=== PATIENT | male | born 1940 | race Caucasian/White ===

== ENCOUNTER → 2017-04-26 | Outpatient (CLI) | payer OTHER, MEDICARE ==
[~2017-04-26] MED LIST: Aspirin PO; BETAMETHASONE; CETIRIZINE PO; CICLOPIROX; CLOTCRE5; COEN100C3; Combigan OPB; Fish Oil; GLUC250C; HCTZ PO; LATA0.5S OP; Nasal Spray; [UNRECOGNIZED DRUG - OTHER]; [UNRECOGNIZED DRUG - OTHER]; [UNRECOGNIZED DRUG - OTHER]; [UNRECOGNIZED DRUG - OTHER] PO; [UNRECOGNIZED DRUG - OTHER] PO; [UNRECOGNIZED DRUG - OTHER] PO
[2017-04-26 12:33] LABS: BASO % 0.1 %; BASO ABS # 0.01 K/uL (0-0.2); COMPLETE YES; HEMATOCRIT 41.3 % (42-52); IG% 0.1 %; LYMPH % 12.7 %; MEAN CELL VOLUME 91.2 fL (80-100); MEAN CORPUSCULAR HEMOGLOBIN 31.1 pg (25-34); MEAN CORPUSCULAR HGB CONC 34.1 g/dl (32-36); MEAN PLATELET VOLUME 11.5 fL (7.4-10.4); MONO % 5.2 %; NEUT % 79.9 %; PLATELET COUNT 167 K/uL (130-400); RED BLOOD COUNT 4.53 M/uL (4.7-6.1)
[2017-04-26 13:20] LABS: ALT/SGPT 24 U/L (12-78); AST/SGOT 11 U/L (15-37); BLOOD UREA NITROGEN 13 mg/dl (7-18); BUN/CREATININE RATIO 13.2 (10-20); CALCIUM 8.4 mg/dl (8.5-10.1); CARBON DIOXIDE 24 mmol/L (21-32); CHLORIDE 105 mmol/L (98-107); CREATININE 1.02 mg/dl (0.60-1.40); GLUCOSE 94 mg/dl (70-99); POTASSIUM 3.8 mmol/L (3.5-5.1); SODIUM 140 mmol/L (136-145)
[2017-04-26 13:26] LABS: ALB/GLOB RATIO 1.1 (0.9-2); ALKALINE PHOSPHATASE 63 U/L (45-117); CHOLESTEROL 169 mg/dl (0-200); CHOLESTEROL/HDL RATIO 2.4; HDL CHOLESTEROL 70 mg/dl; LDL CHOLESTEROL CALCULATED 78 mg/dl; TRIGLYCERIDES 106 mg/dl (0-150); VERY LOW DENSITY LIPOPROT CALC 21 mg/dl
== END | disposition home or self-care (01) ==
LOC: C.LABBFT 08:59
PROVIDERS: ATTEND Urology
DX: N40.1 Benign prostatic hyperplasia with lower urinary tract symptoms (principal); I10 Essential (primary) hypertension; E78.00 Pure hypercholesterolemia, unspecified

== ENCOUNTER → 2017-09-15 | Day surgery (SDC) | payer OTHER, MEDICARE ==
[2017-08-30 12:23] VITALS: Ht 176.5 cm; Wt 77.3 kg
[~2017-09-15] VITALS: Ht 176.5 cm; Wt 77.3 kg
[~2017-09-15] MED LIST changes: +ASPCH81X PO; -Aspirin PO; +BENA1TAB53 PO; -BETAMETHASONE; +BRIM0.2S OPB; +CETI10TA10 PO; -CETIRIZINE PO; +CHOL200010 PO; +CICL0.773 TOP; -CICLOPIROX; -CLOTCRE5; -COEN100C3; +COEN100C7 PO; -Combigan OPB; -Fish Oil; -GLUC250C; +GLUCTAB7 PO; -HCTZ PO; +HYDR25TA4 PO; -LATA0.5S OP; +LATA0.5S OPB; +LECITHIN PO; +LIDOCAINE HCL 2% 2 ML VIAL (20MG/ML) ONE; +MELO7.5T6 PO; +MIDAZOLAM HCL 1 MG/ML 2ML VIAL ONE; +MULTTAB58 PO; -Nasal Spray; +OMEG10007 PO; +ONDANSETRON INJ 2 MG/ML 2 ML VIAL ONE; +OXYM0.0592 NAE; +PROPOFOL IV EMULSION 10 MG/ML 20 ML VIAL IV ONE; +SODIUM CHLORIDE 0.9% 500ML 500 ML IV ONE; +VITAMIN B12 PO; +[UNRECOGNIZED DRUG - CODE] EXT; -[UNRECOGNIZED DRUG - OTHER]; -[UNRECOGNIZED DRUG - OTHER]; -[UNRECOGNIZED DRUG - OTHER]; -[UNRECOGNIZED DRUG - OTHER] PO; -[UNRECOGNIZED DRUG - OTHER] PO; -[UNRECOGNIZED DRUG - OTHER] PO
--- NOTE | 2017-09-15 11:02 | Endo History and Physical ---
History & Physical Date of Service: Sep 15, 2017. Chief Complaint: History of polyps Referring Physician: Dr. Uriel Marquez History of Present Illness 77 yo CM who presents for colonoscopy secondary to history of colon polyps. Past Medical History Hypertension Past Surgical History Hx Cardiac Surgery: No Hx Internal Defibrillator: No Hx Pacemaker: No Hx Abdominal Surgery: No Hx of Implantable Prosthesis: No Hx Post-Op Nausea and Vomiting: No Hx Cancer Surgery: Yes (MOHS ON NOSE) Hx Thoracic Surgery: No Hx Orthopedic: Yes (RT KNEE ARTHROSCOPY, LEFT SHOULDER SURGERY) Hx Urinary Tract Surgery: Yes (TURP (GREENLIGHT), VASECTOMY) Family History None Social History Smoking Status: Former Smoker Hx Substance Use: No Hx Alcohol Use: Yes (OCCASIONALLY) Allergies Coded Allergies: Ciprofloxacin (Verified Allergy, Unknown, TEAR IN RT CALF MUSCLE, 08/30/17) Clindamycin (Verified Allergy, Unknown, C-Diff, 08/30/17) Current Medications Reported Home Medications Medications Dose Route/Sig Max Daily Dose Days Date Category Nasal [place] (Oxymetazoline Hcl) 0.05 % Spr 1 [place] FLACO DAILY PRN 08/30/17 Reported Zyrtec (Cetirizine Hcl) 10 Mg Tab 10 Mg PO DAILY PRN 08/30/17 Reported Multivitamin (Multiple Vitamin) 1 Tab Tab 1 Tab PO QAM 08/30/17 Reported [Vitamin B12] 3,000 Mcg PO QAM 08/30/17 Reported Vitamin D (Cholecalciferol) 2,000 Unit Cap 1 Cap PO QAM 08/30/17 Reported [place]-3 (Fish Oil) 1 Ea Cap 1 Cap PO QAM 08/30/17 Reported Coq10 (Coenzyme Q10 (Ubidecarenone)) 100 Mg Cap 1 Cap PO QAM 08/30/17 Reported [Lecithin] 1 Tab PO QAM 08/30/17 Reported Glucosamine Chondroitin (Ppynjsxwbjc-Xxhmaffwqig-Gxb C-) 1 Tab Tab 1 Tab PO QAM 08/30/17 Reported Aspirin Chewable (Aspirin) 81 Mg Chew 81 Mg PO QPM 08/30/17 Reported Mobic (Meloxicam) 7.5 Mg Tab 7.5 Mg PO QAM 08/30/17 Reported Betamethasone Valerate (Betamethasone Marnie) 135 Appln/45 Gm Cr 1 Dose EXT DIRECTED 08/30/17 Reported Ciclopirox (Ciclopirox Olamine) 0.77 % Lidia 1 Appln TOP BID 08/30/17 Reported Xalatan 0.005% Oph Valerie (Latanoprost) 0.005 % Valerie 1 Drops OPB HS 08/30/17 Reported Lotensin (Benazepril HCl) 40 Mg Tab 40 Mg PO QPM 08/30/17 Reported Combigan (Brimonidine Tartrate-Timolol M) 1 Valerie Valerie 1 Drop OPB BID 08/30/17 Reported Hctz (Hydrochlorothiazide) 25 Mg Tab 0.5 Tab PO QAM 08/30/17 Reported Vital Signs Weight (Kilograms): 77.27 Height (Feet): 5 Height (Inches): 9.5 Date Time Temp Pulse Resp B/P (MAP) Pulse Ox O2 Delivery O2 Flow Rate FiO2 09/15/17 10:30 36.9 18 131/81 (98) 98 Room Air Physical Exam General Appearance: WD/WN, no apparent distress Respiratory/Chest: Auscultation: breath sounds normal Cardiovascular: Heart Auscultation: RRR Abdomen: Bowel Sounds: normal Inspection & Palpation: soft, non-distended, no tenderness, guarding & rebound Assessment and Plan Assessment: 77 yo CM who presents for colonoscopy secondary to history of colon polyps. Plan: Proceed with colonoscopy.
--- NOTE | 2017-09-15 11:55 | Discharge Instructions ---
Endoscopy Patient Instructions Date / Procedure(s) Performed Sep 15, 2017. Colonoscopy Allergy Information Coded Allergies: Ciprofloxacin (Verified Allergy, Unknown, TEAR IN RT CALF MUSCLE, 08/30/17) Clindamycin (Verified Allergy, Unknown, C-Diff, 08/30/17) Discharge Date / Findings Sep 15, 2017. Internal hemorrhoids Medication Instructions Stopped Medication(s): Aspirin OK to resume all medications today as prescribed Reported Home Medications Medications Dose Route/Sig Max Daily Dose Days Date Category Nasal [place] (Oxymetazoline Hcl) 0.05 % Spr 1 [place] FLACO DAILY PRN 08/30/17 Reported Zyrtec (Cetirizine Hcl) 10 Mg Tab 10 Mg PO DAILY PRN 08/30/17 Reported Multivitamin (Multiple Vitamin) 1 Tab Tab 1 Tab PO QAM 08/30/17 Reported [Vitamin B12] 3,000 Mcg PO QAM 08/30/17 Reported Vitamin D (Cholecalciferol) 2,000 Unit Cap 1 Cap PO QAM 08/30/17 Reported [place]-3 (Fish Oil) 1 Ea Cap 1 Cap PO QAM 08/30/17 Reported Coq10 (Coenzyme Q10 (Ubidecarenone)) 100 Mg Cap 1 Cap PO QAM 08/30/17 Reported [Lecithin] 1 Tab PO QAM 08/30/17 Reported Glucosamine Chondroitin (Dsuzhehizbm-Mtpwerposks-Kod C-) 1 Tab Tab 1 Tab PO QAM 08/30/17 Reported Aspirin Chewable (Aspirin) 81 Mg Chew 81 Mg PO QPM 08/30/17 Reported Mobic (Meloxicam) 7.5 Mg Tab 7.5 Mg PO QAM 08/30/17 Reported Betamethasone Valerate (Betamethasone Marnie) 135 Appln/45 Gm Cr 1 Dose EXT DIRECTED 08/30/17 Reported Ciclopirox (Ciclopirox Olamine) 0.77 % Lidia 1 Appln TOP BID 08/30/17 Reported Xalatan 0.005% Oph Valerie (Latanoprost) 0.005 % Valerie 1 Drops OPB HS 08/30/17 Reported Lotensin (Benazepril HCl) 40 Mg Tab 40 Mg PO QPM 08/30/17 Reported Combigan (Brimonidine Tartrate-Timolol M) 1 Valerie Valerie 1 Drop OPB BID 08/30/17 Reported Hctz (Hydrochlorothiazide) 25 Mg Tab 0.5 Tab PO QAM 08/30/17 Reported Provider Instructions Activity Restrictions - No exercising or heavy lifting for 24 hours. - Do not drink alcohol the day of the procedure. - Do not drive a car or operate machinery until the day after the procedure. - Do not make any important decisions or sign important papers in 24 hours after the procedure. Following Day: - Return to full activity which may include returning to work/school. Diet Start your diet with liquids and light foods (jello, soup, juice, toast). Then eat your usual diet if not nauseated. Treatment For Common After Affects For mild abdominal pain, bloating, or excessive gas: - Rest - Eat lightly - Lie on right side Follow-Up Information Follow-up with Dr. Uriel Marquez as scheduled Anesthesia Information What You Should Know You have had a procedure that required some medicine to reduce anxiety and discomfort. This treatment is called moderate sedation. After receiving the treatment, you may be sleepy, but you will be able to breathe on your own. The effects of the treatment may last for several hours. Follow these instructions along with Activity/Diet recommendations noted above: * Do NOT do anything where dizziness or clumsiness would be dangerous. * Rest quietly at home today, then you can be up and about tomorrow. * Have a responsible person stay with you the rest of today. * You may have had an I.V. today. If so, you may take the dressing off later today. Recommendations Call your doctor if: * Trouble breathing * Continuous vomiting for more than 24 hours * Temperature above 101 degrees * Severe abdominal pain or bloating * Pain not relieved by pain medicine ordered * There is increased drainage or redness from any incision * A large amount of rectal bleeding greater than 2-3 tablespoons. (If you had a polyp/s removed or have hemorrhoids, a small amount of blood - from the rectum is to be expected.) * You have any unanswered questions or concerns. IN THE EVENT OF A SERIOUS EMERGENCY, GO TO THE NEAREST EMERGENCY ROOM Your discharge instructions were prepared by provider Teodoro May. Patient Instructions Signature Page Jamar Hadley Patient (or Guardian) Signature/Date: I have read and understand the instructions given to me by my caregivers. Caregiver/RN/Doctor Signature/Date: The above-named patient and/or guardian has received patient instructions on this date. + Original Patient Signature Page (only) stays with chart. Please make copy for patient.
--- NOTE | 2017-09-15 11:56 | Anesthesiology Progress Note ---
Anesthesia Post Op Note Date & Time Sep 15, 2017 at 11:56 Vital Signs Pain Intensity: 0 Vital Signs Past 12 Hours Date Time Temp Pulse Resp B/P (MAP) Pulse Ox O2 Delivery O2 Flow Rate FiO2 09/15/17 11:37 52 16 111/61 (78) 97 Room Air 09/15/17 10:30 36.9 18 131/81 (98) 98 Room Air Notes Mental Status: alert / awake / arousable, participated in evaluation Pt Amnestic to Procedure: Yes Nausea / Vomiting: adequately controlled Pain: adequately controlled Airway Patency, RR, SpO2: stable & adequate BP & HR: stable & adequate Hydration State: stable & adequate Anesthetic Complications: no major complications apparent
--- NOTE | 2017-09-15 12:02 | GI REPORT ---
Procedure Date: 09/15/2017 10:47 AM Procedure: Colonoscopy Indications: High risk colon cancer surveillance: Personal history of colonic polyps Medicines: Monitored Anesthesia Care Complications: No immediate complications. Estimated Blood Loss: Estimated blood loss: none. Procedure: Pre-Anesthesia Assessment: - Prior to the procedure, a History and Physical was performed, and patient medications and allergies were reviewed. The patient's tolerance of previous anesthesia was also reviewed. The risks and benefits of the procedure and the sedation options and risks were discussed with the patient. All questions were answered, and informed consent was obtained. Prior Anticoagulants: The patient has taken aspirin, last dose was 1 day prior to procedure. ASA Grade Assessment: II - A patient with mild systemic disease. After reviewing the risks and benefits, the patient was deemed in satisfactory condition to undergo the procedure. After I obtained informed consent, the scope was passed under direct vision. Throughout the procedure, the patient's blood pressure, pulse, and oxygen saturations were monitored continuously. The scope was introduced through the anus and advanced to the terminal ileum. The colonoscopy was performed without difficulty. The patient tolerated the procedure well. The quality of the bowel preparation was good. The terminal ileum, ileocecal valve, appendiceal orifice, and rectum were photographed. Findings: The perianal and digital rectal examinations were normal. Non-bleeding internal hemorrhoids were found during retroflexion. The hemorrhoids were small. The exam was otherwise without abnormality. Impression: - Non-bleeding internal hemorrhoids. - The examination was otherwise normal. - No specimens collected. Recommendation: - Resume previous diet. - Continue present medications. - No repeat colonoscopy due to age and the absence of advanced adenomas. - Return to primary care physician as previously scheduled. Teodoro May DO 09/15/2017 12:01:39 PM This report has been signed electronically. Note Initiated On: 09/15/2017 10:47 AM I attest to the content of the Intraoperative Record and orders documented therein, exceptions below
[2017-09-15 12:07] VITALS: BP 146/84; PULSE 56; O2SAT 98
== END | disposition home or self-care (01) ==
LOC: C.GI 10:02
PROVIDERS: ATTEND Internal Medicine
DX: Z12.11 Encounter for screening for malignant neoplasm of colon (principal); Z86.010 Personal history of colon polyps; K64.8 Other hemorrhoids; I10 Essential (primary) hypertension; K21.9 Gastro-esophageal reflux disease without esophagitis; N40.0 Benign prostatic hyperplasia without lower urinary tract symptoms; Z85.828 Personal history of other malignant neoplasm of skin; Z88.1 Allergy status to other antibiotic agents; Z79.82 Long term (current) use of aspirin; Z87.891 Personal history of nicotine dependence

== ENCOUNTER → 2017-09-29 | Outpatient (CLI) | payer OTHER, MEDICARE ==
[~2017-09-29] MED LIST changes: -LIDOCAINE HCL 2% 2 ML VIAL (20MG/ML) ONE; -MIDAZOLAM HCL 1 MG/ML 2ML VIAL ONE; -ONDANSETRON INJ 2 MG/ML 2 ML VIAL ONE; -PROPOFOL IV EMULSION 10 MG/ML 20 ML VIAL IV ONE; -SODIUM CHLORIDE 0.9% 500ML 500 ML IV ONE
--- NOTE | 2017-10-07 09:34 | CODING QUERY NO DIAGNOSIS ---
: 1940 TREATMENT RENDERED WITHOUT A DIAGNOSIS To promote full compliance with coding requirements relating to patient care, physician participation is requested in all cases of photographic platemaker uncertainty. Please assist us with providing a diagnosis/symptom for the test(s) below: A diagnosis/symptom was not documented on your Order. A valid diagnosis/symptom is required to bill all insurances. Please remember that we are unable to code a diagnosis of rule out, probable, possible, questionable, or suspected. Tests that require a diagnosis: DOS: 09/29/17 * FINGER BIOPSY DIAGNOSIS: Provider Signature: Date: Thank you Juliette Kay Health Information Management Once completed, please kindly fax back to [phone] For questions please call [phone]
== END | disposition home or self-care (01) ==
LOC: C.PATHSPEC 17:26
PROVIDERS: ATTEND Orthopaedic Surgery
DX: M19.042 Primary osteoarthritis, left hand (principal); M10.9 Gout, unspecified

== ENCOUNTER → 2017-10-26 | Outpatient (CLI) | payer OTHER, MEDICARE | END | disposition home or self-care (01) | LOC: C.LABBFT 08:27 | PROVIDERS: ATTEND Internal Medicine | DX: M10.9 Gout, unspecified (principal) ==

== ENCOUNTER 2019-12-11 11:49 | Inpatient (IN) ==
[2019-12-11] MEDS ORDERED: KETOROLAC TROMETHAMINE 15 MG/ML VIAL IV STA (13:24)
[2019-12-11] MEDS ORDERED: ONDANSETRON INJ 2 MG/ML 2 ML VIAL IV STA (13:24)
--- NOTE | 2019-12-11 13:29 | Emergency Department Note ---
Impression & Plan Epigastric abdominal pain, SBO (small bowel obstruction), Nausea ED Provider Note NAME: JOANN GUERRERO AGE: 79 SEX: M : 1940 ARRIVES VIA: Walk-In INFORMANT: [Patient] ED PROVIDER(S): [Sunny Leonard MD] CHIEF COMPLAINT: Abdominal pain HISTORY OF PRESENT ILLNESS: The patient is an 79-year-old male who presents with just around 2 days of abdominal pain. The patient states the pain started yesterday in the morning but the pain was mild and bearable. Towards the evening, the pain was maybe slightly worse but he did notice some improvement with some Tums and Pepto- Bismol. Patient states that early this morning, he awoke with more severe abdominal pain. The pain is in the epigastric area and does radiate at times to the back. The pain is a burning, sharp discomfort. It is in the epigastric area primarily. It is a 7/10. Sometimes, movement makes it worse. The patient did try some Tylenol with minimal relief. The patient has had some nausea, no vomiting. No diarrhea, no urinary complaints. No fever, chills, cough or congestion. No shortness of breath. The patient has no previous surgical history. REVIEW OF SYSTEMS: See HPI for pertinent positives and negatives. A total of ten systems were reviewed and were otherwise negative. PMHx/PSHx: See Below SOCIAL HISTORY: See Below. PHYSICAL EXAM: GENERAL: Patient is in no acute distress. HEENT: No acute trauma, normocephalic atraumatic, mucous membranes moist, no nasal congestion, no scleral icterus. NECK: No stridor, no adenopathy, no meningismus, trachea is midline. LUNGS: Clear to auscultation bilaterally, no wheeze, no rhonchi, breath sounds equal. HEART: Subtle systolic murmur, regular rate and rhythm. ABDOMEN: Soft, moderate tenderness in the epigastrium and both upper quadrants, bowel sounds positive, no hernias, no peritonitis. EXTREMITIES: No cyanosis or edema, full range of motion of all the joints without pain or difficulty, no signs for acute trauma. NEUROLOGIC: Oriented x 3, no acute motor or sensory deficits, no focal weakness. SKIN: No rash, no jaundice, no diaphoresis. DIFFERENTIAL DIAGNOSIS: Appendicitis, testicular torsion, infections, diverticulitis, UTI, obstruction, mesenteric ischemia, aortic pathology, inflammatory bowel disease, renal colic, PUD, pancreatitis, biliary pathology, hernia, volvulus, constipation, as well as other pathologies. EMERGENCY DEPARTMENT COURSE/PROCEDURES: ECG: Indication was epigastric abdominal pain. The EKG shows a normal sinus rhythm with some sinus arrhythmia. The rate is 62. There are no PVCs. No ST elevation. The QTc is 426. Continuous Cardiac Monitoring: An order was placed for continuous cardiac monitoring. The monitor shows a rate of 61 with normal sinus rhythm. MEDICAL DECISION MAKING: There is no leukocytosis or concerning anemia. No significant electrolyte abnormality or kidney failure. No concerning liver enzyme elevation. No evidence for pancreatitis. EKG shows a sinus rhythm with some sinus arrhythmia. No acute ischemia. Cardiac enzyme testing x1 is not consistent with acute cardiac injury. Chest x-ray does not show free air, pneumonia or mediastinal widening. Abdominal and pelvis CT shows a small bowel obstruction, no abscess, no evidence for mass. The patient received IV Zofran and IV Toradol. He was given IV saline 1 L. An NG tube was placed to low intermittent suction. The patient presents with escalating abdominal pain. He appears to have a small bowel obstruction by work-up. Hospitalization and further care is warranted. I did speak to general surgery. I spoke with case management. The on-call hospitalist was consulted. The patient is aware of all his findings. Past Med/Surg History Medical History Hypertension (Acute) Surgical History History of prostate surgery Green light laser for BPH S/P cataract surgery left eye, 2006 right eye 2003 S/P shoulder surgery Left shoulder slap tear and impingement 2009 S/P vasectomy Status post arthroscopy of right knee Status post Mohs micrographic surgery for basal cell carcinoma (BCC) Status post YAG capsulotomy of left eye Family History Mother Hypertension Lung cancer Father Hypertension Hyperlipidemia Thyroid disorder Coronary heart disease Denies family history of Prostate cancer Colorectal cancer Social History Communication Ability: Effective marital status: Current Living Situation: Spouse current occupational status: retired current occupation: qa engineer Feels Safe at Home: Yes Smoking Status: Never smoker Age Started Using Tobacco: 18 ; Age Quit Using Tobacco: 58 ; packs per day: 1 ; Cigarettes Per Day: 20 ; Number of Years Since Quit: 21 ; Second Hand Exposure: No ; Hx Alcohol Use: Yes Hx Substance Use: No Allergies Allergies Allergy/AdvReac Type Severity Reaction Status Date / Time Cipro Allergy Unknown TEAR IN RT Verified 09/15/17 12:17 CALF MUSCLE ciprofloxacin Allergy Unknown TEAR IN RT Verified 12/11/19 13:47 CALF MUSCLE clindamycin Allergy Unknown C-Diff Verified 12/11/19 13:47 Aqxkehm-Icg-Kbc Reductase AdvReac Verified 12/11/19 13:47 Inhibitor Home Meds Home Medications Medication Instructions Recorded Confirmed brimonidine 0.2 %-timolol 0.5 % 1 drops OPHTHALMIC (EYE) BID ml 04/24/19 12/11/19 eye drops aspirin 81 mg tablet,delayed 81 mg PO HS 04/26/19 12/11/19 release ciclopirox 0.77 % topical gel 1 appln TOP QAM 04/26/19 12/11/19 coenzyme Q10 100 mg capsule 100 mg PO QAM 04/26/19 12/11/19 latanoprost 0.005 % eye drops 1 drops OP QDD 04/26/19 12/11/19 acetaminophen [Tylenol] 325 mg PO QID PRN 12/11/19 12/11/19 allopurinol 100 mg PO QAM 12/11/19 12/11/19 benazepril 40 mg PO HS 12/11/19 12/11/19 cholecalciferol (vitamin D3) 1,000 units PO QAM 12/11/19 12/11/19 cyanocobalamin (vitamin B-12) 3,000 mcg PO QAM 12/11/19 12/11/19 [Vitamin B-12] glucos sul 0RAh-krg-mltcj-C-Mn 1 cap PO BID 12/11/19 12/11/19 [Glucosamine Chondroitin] hydrochlorothiazide 12.5 mg PO QAM 12/11/19 12/11/19 meloxicam 7.5 mg PO QDL 12/11/19 12/11/19 omega 1-fpw-ptb-fish oil [Elkin-3] 1 cap PO QAM 12/11/19 12/11/19 Previous Rx's Medication Instructions Recorded betamethasone valerate 0.1 % See Rx Instructions TOP BID PRN 04/26/19 topical cream #45 gm colchicine 0.6 mg tablet 0.6 mg PO DAILY PRN #90 tab 04/26/19 Results & Data (ED) Vital Signs Vital Signs - 24 hr 12/11/19 12:07 12/11/19 13:31 12/11/19 15:30 Temperature 36.8 C Temperature Source Oral Pulse Rate 66 Pulse Rate [Apical] 61 70 Respiratory Rate 18 18 18 Blood Pressure 178/90 H Blood Pressure [Left Arm] 166/89 H 154/70 H Blood Pressure Mean 119 Blood Pressure Mean [Left Arm] 114 98 Pulse Oximetry 98 97 97 Oxygen Delivery Method Room Air Room Air Room Air Sepsis Recent Fever Within 48 Hours No Sepsis New/Unexplained Change in Mental Status No Sepsis Action Taken by Nursing No Action Required Home Medications Current Medication List: was personally reviewed by me Laboratory Data Attestation: I reviewed the patient's lab results. Result diagrams: 12/11/19 13:25 12/11/19 13:25 Lab Results 12/11/19 12/11/19 Range/Units 13:25 13:25 WBC 9.15 (4.8-10.8) K/uL RBC 4.91 (4.7-6.1) M/uL Hgb 16.1 (14.0-18.0) g/dL Hct 45.1 (42-52) % MCV 91.9 (80-100) fL MCH 32.8 (25-34) pg MCHC 35.7 (32-36) g/dL RDW Std Deviation 45.8 (36.4-46.3) fL RDW Coeff of Giovanni 13.7 (11.5-14.5) % Plt Count 187 (130-400) K/uL MPV 11.2 H (7.4-10.4) fL Immature Gran % (Auto) 0.1 % Neut % (Auto) 83.3 % Lymph % (Auto) 8.1 % Glades % (Auto) 8.1 % Eos % (Auto) 0.3 % Baso % (Auto) 0.1 % Neut # (Auto) 7.62 H (1.4-6.5) K/uL Lymph # (Auto) 0.74 L (1.2-3.4) K/uL Glades # (Auto) 0.74 H (0.11-0.59) K/uL Eos # (Auto) 0.03 (0-0.5) K/uL Baso # (Auto) 0.01 (0-0.2) K/uL Immature Gran # (Auto) 0.01 (0.00-0.02) K/uL Sodium 135 L (136-145) mmol/L Potassium 3.8 (3.5-5.1) mmol/L Chloride 100 (98-107) mmol/L Carbon Dioxide 28 (21-32) mmol/L Anion Gap 7.0 (3-11) BUN 14 (7-18) mg/dl Creatinine 1.06 (0.6-1.4) mg/dl Est Cr Clr Drug Dosing 56.4 ml/min Est GFR ( Amer) 75.9 Est GFR (Non-Af Amer) 65.5 BUN/Creatinine Ratio 13.4 (10-20) Glucose 108 H (70-99) mg/dl Calcium 9.5 (8.5-10.1) mg/dl Total Bilirubin 0.6 (0.2-1) mg/dl AST 14 L (15-37) U/L ALT 27 (12-78) U/L Alkaline Phosphatase 71 (45-117) U/L Troponin I < 0.015 (0-0.045) ng/ml Total Protein 7.5 (6.4-8.2) gm/dl Albumin 3.8 (3.4-5.0) gm/dl Globulin 3.7 (2.5-4.0) gm/dl Albumin/Globulin Ratio 1.0 (0.9-2) Lipase 93 (73-393) U/L Administered Medications Ioversol (Optiray 320 100ml) 93 ml IV ONCE PRN PRN Reason: Interaction Checking Stop: 12/15/19 14:47 Last Admin: 12/11/19 14:49 Dose: 93 ml Documented by: [id number] Discontinued Medications Sodium Chloride (Nss 1000ml) 1,000 mls @ 999 mls/hr IV .Q1H1M DAYO Stop: 12/11/19 14:30 Last Infusion: 12/11/19 15:02 Dose: 0 mls/hr Documented by: [id number] Admin: 12/11/19 13:31 Dose: 999 mls/hr Documented by: [id number] Ketorolac Tromethamine (Toradol) 15 mg IV NOW STA Stop: 12/11/19 13:25 Last Admin: 12/11/19 13:30 Dose: 15 mg Documented by: [id number] Ondansetron HCl (Zofran) 4 mg IV NOW STA Stop: 12/11/19 13:25 Last Admin: 12/11/19 13:31 Dose: 4 mg Documented by: [id number] Imaging Data Radiologist's Impression: SINGLE VIEW CHEST CLINICAL HISTORY: Epigastric abdominal pain. FINDINGS: An AP, portable, upright chest radiograph is correlated with chest CT dated 04/17/2015. The heart is mildly enlarged noting atherosclerotic calcification of the thoracic aorta. The pulmonary vasculature is noncongested. Chronic interstitial thickening is similar to previous. There is mild bibasilar scarring/atelectasis. No airspace consolidation or large pleural effusion is identified. No pneumothorax is seen. The skeletal structures are osteopenic. The bony thorax is grossly intact. IMPRESSION: Mild cardiac enlargement with no acute cardiopulmonary abnormality. CT OF THE ABDOMEN AND PELVIS WITH CONTRAST CLINICAL HISTORY: Epigastric pain and nausea. COMPARISON STUDY: CT of the abdomen and pelvis April 17, 2015. TECHNIQUE: Following IV administration of 93 mL of Optiray-320, axial images of the abdomen and pelvis were obtained from the lung bases to the proximal femurs. Images were reviewed in the axial, sagittal, and coronal planes. IV contrast was administered without complication. Automated exposure control was utilized for the study. A dose lowering technique was utilized adhering to the principles of ALARA. CT DOSE: 819.64 mGycm FINDINGS: Lung bases are unremarkable. No pneumatosis, free air or portal venous gas is present. The liver, spleen, adrenal glands, kidneys and pancreas are unremarkable. There is no biliary or pancreatic ductal dilatation. No hydronephrosis is present. Note is made of an intramuscular lipoma within the left lateral lower chest wall. There is also an intramuscular lipoma within the right gluteal musculature as well as an upper abdominal mesenteric/omental lipoma. The proximal to mid small bowel is moderately dilated and fluid-filled. Transition point is noted within the central abdomen on axial image 185 of 436. The more distal small bowel is decompressed. There is a small amount of ascites and mesenteric infiltration. The appendix is normal. There is no lymphadenopathy. No suspicious osseous lesions are noted. Major vasculature is patent. There is moderate atherosclerotic plaque of the abdominal aorta. IMPRESSION: Findings consistent with a moderate grade small bowel obstruction with transition point within the central abdomen. Decompressed distal small bowel. Small amount of ascites and mesenteric infiltration. Blood Pressure Blood Pressure Findings: Elevated blood pressure Blood Pressure Disposition: Referred to patients primary care provider Discharge Plan Visit Data Chief Complaint: Abdominal Pain Stated Complaint: ABD PAIN,NAUSEA ED Provider: Sunny Leonard Discharge Problem: Epigastric abdominal pain, SBO (small bowel obstruction), Nausea Patient Disposition: Being Evaluated by Hospitalist Condition: Good Forms Stand Alone Forms: [facility] [place] Reissued Prescriptions Prescriptions: No Action Combigan 0.2-0.5 % drops 1 drops ophthalmic (eye) BID RF: 0 latanoprost 0.005 % drops 1 drops OP QDD RF: 0 ciclopirox 0.77 % gel 1 appln TOP QAM RF: 0 aspirin 81 mg tablet,delayed release (DR/EC) 81 mg PO HS RF: 0 coenzyme Q10 [Co Q-10] 100 mg capsule 100 mg PO QAM RF: 0 colchicine 0.6 mg tablet 0.6 mg PO DAILY PRN (Reason: gout) Qty: 90 RF: 0 betamethasone valerate 0.1 % cream See Rx Instructions TOP BID PRN (Reason: itching) Qty: 45 RF: 3 acetaminophen [Tylenol] 325 mg Tablet 325 mg PO QID PRN (Reason: Pain) RF: 0 cyanocobalamin (vitamin B-12) [Vitamin B-12] 1,000 mcg Tablet 3,000 mcg PO QAM RF: 0 Elkin-3 350 mg-235 mg- 90 mg-597 mg Capsule,Delayed Release(Dr/Ec) 1 cap PO QAM RF: 0 Glucosamine Chondroitin 550-30-1 mg Capsule 1 cap PO BID RF: 0 allopurinol 100 mg tablet 100 mg PO QAM RF: 0 meloxicam 7.5 mg tablet 7.5 mg PO QDL RF: 0 hydrochlorothiazide 25 mg tablet 12.5 mg PO QAM RF: 0 benazepril 40 mg tablet 40 mg PO HS RF: 0 cholecalciferol (vitamin D3) 1,000 unit capsule 1,000 units PO QAM RF: 0 Referrals Referrals: Carlos Marquez MD [Primary Care Provider] -
[2019-12-11] MEDS ORDERED: SODIUM CHLORIDE 0.9% 1000ML 1,000 ML IV SCH (13:30)
[2019-12-11 13:35] LABS: Basophils # (auto) 0.01 K/uL (0-0.2); Basophils % (auto) 0.1 %; Eosinophils # (auto) 0.03 K/uL (0-0.5); Eosinophils % (auto) 0.3 %; Hematocrit (blood only) 45.1 % (42-52); Hemoglobin 16.1 g/dL (14.0-18.0); Immature Granulocytes # (auto) 0.01 K/uL (0.00-0.02); Immature Granulocytes % (auto) 0.1 %; Lymphocytes # (auto) 0.74 K/uL (1.2-3.4); Lymphocytes % (auto) 8.1 %; Mean Corpuscular Hemoglobin 32.8 pg (25-34); Mean Corpuscular Hgb Conc 35.7 g/dL (32-36); Mean Corpuscular Volume 91.9 fL (80-100); Mean Platelet Volume 11.2 fL (7.4-10.4); Monocytes # (auto) 0.74 K/uL (0.11-0.59); Monocytes % (auto) 8.1 %; Neutrophils # (auto) 7.62 K/uL (1.4-6.5); Neutrophils % (auto) 83.3 %; Platelet Count 187 K/uL (130-400); RDW Coefficient of Variation 13.7 % (11.5-14.5); RDW Standard Deviation 45.8 fL (36.4-46.3); Red Blood Count 4.91 M/uL (4.7-6.1); White Blood Count 9.15 K/uL (4.8-10.8)
[2019-12-11 13:54] LABS: Alanine Aminotransferase 27 U/L (12-78); Albumin Level 3.8 gm/dl (3.4-5.0); Aspartate Aminotransferase 14 U/L (15-37); BUN Creatinine Ratio 13.4 (10-20); Blood Urea Nitrogen 14 mg/dl (7-18); Calcium 9.5 mg/dl (8.5-10.1); Carbon Dioxide 28 mmol/L (21-32); Chloride 100 mmol/L (98-107); Creatinine Clr Calc Pharmacy 56.4 ml/min; Est GFR (African American) 75.9; Est GFR (Non-African American) 65.5; Glucose 108 mg/dl (70-99); Lipase 93 U/L (73-393); Potassium 3.8 mmol/L (3.5-5.1); Sodium 135 mmol/L (136-145)
--- NOTE | 2019-12-11 13:56 | XRay Report ---
SINGLE VIEW CHEST CLINICAL HISTORY: Epigastric abdominal pain. FINDINGS: An AP, portable, upright chest radiograph is correlated with chest CT dated 04/17/2015. The heart is mildly enlarged noting atherosclerotic calcification of the thoracic aorta. The pulmonary va sculature is noncongested. Chronic interstitial thickening is similar to previous. There is mild biba silar scarring/atelectasis. No airspace consolidation or large pleural effusion is identified. No pne umothorax is seen. The skeletal structures are osteopenic. The bony thorax is grossly intact. IMPRESSION: Mild cardiac enlargement with no acute cardiopulmonary abnormality. ACT 112: Negative or not required by law. Electronically signed by: Sunny Villegas M.D. 12/11/2019 1:54 PM
[2019-12-11 14:06] LABS: Alkaline Phosphatase 71 U/L (45-117); Bilirubin,Total 0.6 mg/dl (0.2-1); Globulin 3.7 gm/dl (2.5-4.0); Total Protein 7.5 gm/dl (6.4-8.2); Troponin I < 0.015 ng/ml (0-0.045)
[2019-12-11] MEDS ORDERED: IOVERSOL 100ml IV PRN (14:48)
--- NOTE | 2019-12-11 15:06 | CT Scan Report ---
CT OF THE ABDOMEN AND PELVIS WITH CONTRAST CLINICAL HISTORY: Epigastric pain and nausea. COMPARISON STUDY: CT of the abdomen and pelvis April 17, 2015. TECHNIQUE: Following IV administration of 93 mL of Optiray-320, axial images of the abdomen and pelvi s were obtained from the lung bases to the proximal femurs. Images were reviewed in the axial, sagitt al, and coronal planes. IV contrast was administered without complication. Automated exposure contro l was utilized for the study. A dose lowering technique was utilized adhering to the principles of A EDELMIRA. CT DOSE: 819.64 mGycm FINDINGS: Lung bases are unremarkable. No pneumatosis, free air or portal venous gas is present. The liver, spleen, adrenal glands, kidneys and pancreas are unremarkable. There is no biliary or pancreat ic ductal dilatation. No hydronephrosis is present. Note is made of an intramuscular lipoma within th e left lateral lower chest wall. There is also an intramuscular lipoma within the right gluteal muscu lature as well as an upper abdominal mesenteric/omental lipoma. The proximal to mid small bowel is mo derately dilated and fluid-filled. Transition point is noted within the central abdomen on axial imag e 185 of 436. The more distal small bowel is decompressed. There is a small amount of ascites and mes enteric infiltration. The appendix is normal. There is no lymphadenopathy. No suspicious osseous lesi ons are noted. Major vasculature is patent. There is moderate atherosclerotic plaque of the abdominal aorta. IMPRESSION: Findings consistent with a moderate grade small bowel obstruction with transition point within the central abdomen. Decompressed distal small bowel. Small amount of ascites and mesenteric i nfiltration. ACT 112: Negative or not required by law. Electronically signed by: Monster Juan M.D. 12/11/2019 3:05 PM
--- NOTE | 2019-12-11 16:19 | Electrocardiogram Report ---
Test Reason : Blood Pressure : / mmHG Vent. Rate : 062 BPM Atrial Rate : 062 BPM P-R Int : 190 ms QRS Dur : 090 ms QT Int : 420 ms P-R-T Axes : 055 -03 052 degrees QTc Int : 426 ms Normal sinus rhythm with sinus arrhythmia Normal ECG No previous ECGs available Confirmed by Todd Carroll ([id number]) on 12/11/2019 4:19:00 PM Referred By: REFERRED SELF Confirmed By:Todd Carroll
[2019-12-11] MEDS ORDERED: BENZOCAIN/TETRACA/BUTAM SPRAY 200 APPLN/20 GM SPRY EXT ONE (16:38)
[2019-12-11] MEDS ORDERED: LIDOCAINE 2% JELLY 5 ML TUBE ONE (16:39)
[2019-12-11] MEDS ORDERED: CANNULA ONE (16:44)
--- NOTE | 2019-12-11 16:44 | History & Physical Report ---
Date of Service December 11, 2019 Assessment & Plan (1) SBO (small bowel obstruction): Patient is small bowel obstruction. Emergency department physician did speak to surgeon on-call who recommended medical management at this point time with surgical consultation. Patient be on parenteral pain and antiemetic control intravenous fluid hydration with surgical consultation NG tube was placed in the ER, it is coiled and will be pulled back (2) Hypertension: Patient typically taking benazepril and hctz, this will be held will use as needed medication at this point time but if more structured schedule medications are needed we can use IV enalapril Patient typically taken aspirin for cardiovascular risk prevention this will be held as possible pending surgical procedure may be warranted (3) DVT prophylaxis: this pt silver be placed on heparin for dvt prevention History of Present Illness Primary Care Provider: Uriel Marquez MD 79-Ms with 2 days of abdominal pain. The patient states the pain started am of 12/09 but was mild . He did notice some improvement with some Tums and Pepto- Bismol. Patient states that early this morning, he awoke with more severe abdominal pain. The pain is in the epigastric area and does radiate at times to the back. The pain is a burning, sharp discomfort. It is in the epigastric area primarily. It is a 7/10. Sometimes, movement makes it worse. The patient did try some Tylenol with minimal relief. The patient has had some nausea, no vomiting. No diarrhea, no urinary complaints. No fever, chills, cough or congestion. No shortness of breath. The patient has no previous surgical history. The pt did exert himself with heavy lifting and his symptoms began after this, question internal hernia? Allergies Allergy/AdvReac Type Severity Reaction Status Date / Time Cipro Allergy Unknown TEAR IN RT Verified 09/15/17 12:17 CALF MUSCLE ciprofloxacin Allergy Unknown TEAR IN RT Verified 12/11/19 13:47 CALF MUSCLE clindamycin Allergy Unknown C-Diff Verified 12/11/19 13:47 Hiqechc-Fxb-Dla Reductase AdvReac Verified 12/11/19 13:47 Inhibitor Home Medications Home Medications Medication Instructions Recorded Confirmed Type brimonidine 0.2 %-timolol 0.5 % 1 drops OPHTHALMIC (EYE) BID ml 04/24/19 12/11/19 History eye drops aspirin 81 mg tablet,delayed 81 mg PO HS 04/26/19 12/11/19 History release betamethasone valerate 0.1 % See Rx Instructions TOP BID PRN 04/26/19 12/11/19 Rx topical cream #45 gm ciclopirox 0.77 % topical gel 1 appln TOP QAM 04/26/19 12/11/19 History coenzyme Q10 100 mg capsule 100 mg PO QAM 04/26/19 12/11/19 History colchicine 0.6 mg tablet 0.6 mg PO DAILY PRN #90 tab 04/26/19 12/11/19 Rx latanoprost 0.005 % eye drops 1 drops OP QDD 04/26/19 12/11/19 History acetaminophen [Tylenol] 325 mg PO QID PRN 12/11/19 12/11/19 History allopurinol 100 mg PO QAM 12/11/19 12/11/19 History benazepril 40 mg PO HS 12/11/19 12/11/19 History cholecalciferol (vitamin D3) 1,000 units PO QAM 12/11/19 12/11/19 History cyanocobalamin (vitamin B-12) 3,000 mcg PO QAM 12/11/19 12/11/19 History [Vitamin B-12] glucos sul 5UNc-mvh-vzpwk-C-Mn 1 cap PO BID 12/11/19 12/11/19 History [Glucosamine Chondroitin] hydrochlorothiazide 12.5 mg PO QAM 12/11/19 12/11/19 History meloxicam 7.5 mg PO QDL 12/11/19 12/11/19 History omega 3-dsc-jkd-fish oil [Bartlett-3] 1 cap PO QAM 12/11/19 12/11/19 History Past Med/Surg History Medical History Hypertension (Acute) Surgical History History of prostate surgery Green light laser for BPH S/P cataract surgery left eye, 2006 right eye 2003 S/P shoulder surgery Left shoulder slap tear and impingement 2009 S/P vasectomy Status post arthroscopy of right knee Status post Mohs micrographic surgery for basal cell carcinoma (BCC) Status post YAG capsulotomy of left eye Family History Mother Hypertension Lung cancer Father Hypertension Hyperlipidemia Thyroid disorder Coronary heart disease Denies family history of Prostate cancer Colorectal cancer Social History Communication Ability: Effective marital status: Current Living Situation: Spouse current occupational status: retired current occupation: weld engineer Feels Safe at Home: Yes Smoking Status: Never smoker Age Started Using Tobacco: 18 ; Age Quit Using Tobacco: 58 ; packs per day: 1 ; Cigarettes Per Day: 20 ; Number of Years Since Quit: 21 ; Second Hand Exposure: No ; Hx Alcohol Use: Yes Hx Substance Use: No Review of Systems Review of Systems: Mild distress and fatigue no headache, blurry or double vision no speech or swallowing issues no chest pain, pressure or palpitations no shortness of breath, cough or wheezes central crampy abdominal pain, mild nausea no vomiting,did have a bm this am no dysuria, hematuria or frequency no focal joint pain or swelling no back pain, CVA tenderness or radicular pain no bruising, bleeding or rashes no focal signs of weakness or numbness or altered sensation no complaints or anxiety or depression. Physical Exam Physical Exam: The patient appeared well nourished and normally developed. Vital signs as documented. Head exam is normocephalic atraumatic no scleral icterus Neck is without JVD, thyromegaly, or carotid bruits. Lungs are clear to auscultation, no focal loss of breath sounds Cardiac exam, Rhythm is regular.. No murmurs, rubs or gallops. Abdominal exam reveals hypoactive bowel sounds, soft mild tenderness, no masses, not tympanitic Extremities are nonedematous and both pedal pulses are normal. Neurologic exam is alert and oriented, no focal loss of strength or sensation Skin is without bruises or rashes Psychologically is without concerns for anxiety or depression Results & Data Results & Data ([facility]) Vital Signs (Past 12 Hours) Vital Signs CT scan abdomen pelvis 12/11/2019 show findings consistent with a moderate grade small bowel obstruction with transition point within the central abdomen. Decompressed distal small bowel. Small amount ascites and mesenteric inflammation Chest x-ray 12/11/2019 mild cardiac enlargement with no acute findings EKG shows normal sinus rhythm Temp Pulse Pulse Resp BP BP Pulse Ox 12/11/19 15:30 70 18 154/70 H 97 12/11/19 13:31 61 18 166/89 H 97 12/11/19 12:07 98.2 F 66 18 178/90 H 98 PG Care Time/CCT Total # of Minutes Spent Total Time Spent with Patient: Total time spent is greater than 50% in coordination of care (as documented) at patient's floor/unit and/or counseling patient: Coding Level of Care Code 84829 Initial Inpt Care Lvl 3 Diagnoses SBO (small bowel obstruction) K56.609 Hypertension I10 DVT prophylaxis Z29.9
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
--- NOTE | 2019-12-11 18:24 | XRay Report ---
KUB CLINICAL HISTORY: Enteric tube placement. FINDINGS: An AP, portable, supine view of the lower chest and upper abdomen is correlated with abdomi nal CT dated 12/11/2019. An enteric tube has been placed and project below the diaphragm. The tip is c oiled in the region of the fundus. There are findings of persistent bowel obstruction. No evidence of intraperitoneal free air is identified on this supine image. The lung bases are clear as imaged. Exc reted IV contrast is present within the renal collecting systems. IMPRESSION: 1. An enteric tube has been placed as above. 2. There is evidence of persistent small bowel obstruction. Electronically signed by: Sunny Villegas M.D. 12/11/2019 6:22 PM
[2019-12-11] MEDS ORDERED: MoRPHine SULFATE 4 MG/ML 1 ML CARP\\VIAL IV PRN (19:18)
[2019-12-11] MEDS ORDERED: LORazepam 0.5 MG/1 ML VIAL IV PRN (19:18)
[2019-12-11] MEDS ORDERED: HydrALAZINE HCL 20 MG/ML VIAL IV PRN (19:18)
[2019-12-11] MEDS ORDERED: MoRPHine SULFATE 2 MG/ML CARP IV PRN (19:18)
[2019-12-11] MEDS: SODIUM CHLORIDE 0.9% 1000ML 1,000 ML IV SCH (19:30)
[2019-12-11] MEDS: HEPARIN SOD 5,000 UNIT/0.5 ML VIAL SQ SCH (20:41)
[2019-12-11 22:31] LABS: Appearance Urine Clear (Clear); Bilirubin Urine Negative (Negative); Blood Urine Negative (Negative); Color Urine Yellow; Glucose Urine UA Negative (Negative); Ketones Urine Negative (Negative); Leukocyte Esterase Urine Negative (Negative); Nitrite Urine Negative (Negative); Protein Urine Negative (Negative); Specific Gravity Urine 1.031 (1.000-1.030); Urobilinogen Urine Negative (Negative)
[2019-12-11] MEDS: FLUTICASONE PROPIONATE NA SPR 16 GM BTL SCH (22:48)
[2019-12-11] MEDS ORDERED: COUGH DROP (SUGAR FREE) LOZ 24 LOZ/1 BOX BUCCAL ONE (22:49)
[2019-12-12] MEDS: [UNRECOGNIZED DRUG - OTHER] SCH ×3 (00:51→16:38)
[2019-12-12] MEDS: SODIUM CHLORIDE 0.9% 1000ML 1,000 ML IV SCH (03:21)
[2019-12-12] MEDS: HEPARIN SOD 5,000 UNIT/0.5 ML VIAL SQ SCH ×2 (07:50→22:02)
[2019-12-12] MEDS ORDERED: ACETAMINOPHEN 1,000 MG/100 ML VIAL IV PRN (07:53)
[2019-12-12] MEDS ORDERED: ACETAMINOPHEN 1,000 MG/100 ML VIAL IV STA (07:53)
[2019-12-12 07:55] LABS: BUN Creatinine Ratio 10.5 (10-20); Calcium 9.5 mg/dl (8.5-10.1); Creatinine Clr Calc Pharmacy 53.9 ml/min; Est GFR (African American) 71.8; Est GFR (Non-African American) 61.9; Potassium 3.4 mmol/L (3.5-5.1)
--- NOTE | 2019-12-12 07:56 | Surgery Progress Note ---
Date of Service December 12, 2019 Assessment & Plan (1) SBO (small bowel obstruction): KUB pending, NG may need pulled back clamp NG for amb, continue until passing flatus Supervising Physician Co-Signing Physician Notes Patient seen and examined, labs and imaging reviewed, agree with above. 79-year-old male admitted yesterday for de bhumi bowel obstruction. NG tube placed, 1200 cc overnight. This morning he states that he is feeling better, still with some residual abdominal pain but improved. He still feels bloated. He may have passed a very small amount of flatus but nothing reliable. On exam he is afebrile stable vitals, abdomen moderately distended, minimally tender to palpation. Labs normal, KUB with persistent small bowel obstruction, NG tube should be pulled back slightly. Recommend pulling NG tube back few centimeters, continue nonoperative management. Patient may clamp to ambulate. Surgery will continue to follow, call with questions or concern Subjective feels better, no pain, no flatus Physical Exam Gastrointestinal (Abdomen): Inspection/Auscultation: + abdomen distended (less) Percussion/Palpation: abdomen soft; abdomen nontender NG 1200 Results & Data Vital Signs (Past 12 Hours) Vital Signs Temp Pulse Resp BP Pulse Ox 12/12/19 06:57 58 L 16 137/73 92 12/11/19 22:55 36.7 C 54 L 16 145/69 H 92 PG Care Time/CCT Total # of Minutes Spent Total Time Spent with Patient: Total time spent is greater than 50% in coordination of care (as documented) at patient's floor/unit and/or counseling patient: Coding Level of Care Code 75964 Inpt Consult Level 1 Diagnoses SBO (small bowel obstruction) K56.609
--- NOTE | 2019-12-12 07:59 | XRay Report ---
KUB CLINICAL HISTORY: NG tube placement COMPARISON STUDY: CT of the abdomen and pelvis and KUB December 10, 2018. FINDINGS: Nasogastric is coiled within the stomach. Tip projects over the distal body of the stomach. Several loops of mildly dilated small bowel are again noted. IMPRESSION: 1. Nasogastric tube coiled within the stomach. Tip projects over the distal body of the stomach. 2. Findings suggest a persistent small bowel obstruction. ACT 112: Negative or not required by law. Electronically signed by: Monster Juan M.D. 12/12/2019 7:58 AM
--- NOTE | 2019-12-12 08:26 | XRay Report ---
XR abdomen min 2V CLINICAL HISTORY: Evaluate small bowel obstruction. COMPARISON STUDY: KUB and CT of the abdomen and pelvis December 11, 2019. FINDINGS: The nasogastric tube is coiled within the stomach. The tip projects over the gastric fundu s. No free air is noted on the upright projection. Multiple mildly dilated small bowel are noted. The se measure 4.2 cm in caliber. Small bowel dilatation has mildly increased since exam of December 11, 2019 . IMPRESSION: 1. Mild increase in small bowel dilatation. This indicates a persistent small bowel obstruction. 2. No free air. 3. Nasogastric tube coiled within the stomach. Tip projects over the gastric fundus. ACT 112: Negative or not required by law. Electronically signed by: Monster Juan M.D. 12/12/2019 8:24 AM
[2019-12-12] MEDS ORDERED: POTASSIUM CHLORIDE 20 MEQ in SODIUM CHLORIDE 0.9% 1000ML 1,000 ML IV SCH (08:41)
[2019-12-12] MEDS ORDERED: FLUTICASONE PROPIONATE NA SPR 16 GM BTL SCH (09:00)
[2019-12-12] MEDS: NSS + 20MEQ KCL 20 MEQ/1,000 ML BAG IV SCH ×2 (09:32→17:45)
--- NOTE | 2019-12-12 14:11 | Hospitalist Progress Note ---
Date of Service December 12, 2019 Assessment & Plan (1) SBO (small bowel obstruction): * Patient with PMHx HTN, HLD, glaucoma, gout, BPH presented with SBO. No hx abdominal surgeries. Concerning for malignancy * Most recent colonoscopy September [address] May for personal history of colonic polyps which was normal with exception of non-bleeding internal hemorrhoids. No repeat recommended due to age/absence of advanced adenomas * Does have a history of right inguinal adenopathy and had seen Dr. Ibarra back in 2016 (also personal history of skin ca) which was non-palpable on exam and recommended updated sonogram of testicle which showed stable 7mm echogenic focus within left epididymal body, left hydrocele, 2 stable right sided- intratesticular cysts (stable from Apr 2015 imaging). Non palpable on exam today but may warrant further investigation given SBO without hx of abdominal surgeries. * Also history of multiple thyroid nodules 2015 which did not meet sonographic criteria for biopsy at that time. * Repeat KUB with mild increase in small bowel dilation AM 12/11 * General surgery on consult -- appreciate assistance * Conservative management for now -- NGT to be pulled back Pain control prn tylenol, morphine Hydralazine ordered prn for BP as benazepril, HCT on hold NPO Added 20meq KCL to IVF -- NSS @125cc/hr for K3.4 Mag level pending Labs in AM Repeat KUB in AM (2) Hypertension: * Chronic. * Elevated currently at 169/84 -- benazepril and hctz on hold as patient NPO * Hydralazine ordered prn * If needed IV enalapril scheduled, patient would need transferred to telemetry unit per nursing (3) Gout: * Holding PO medications -- no current s/sx flare (4) Glaucoma: * Chronic. Continue home meds (5) BPH (benign prostatic hyperplasia): * Hx of -- had "green light laser" in past. PSA elevated at 5.230 August 2018 (6) DVT prophylaxis: * Heparin Admission and Anticipated Discharge Date Admission Date: December 11, 2019 Supervising Physician Co-Signing Physician Notes PA Supervision Note: I did not personally see or examine the patient today, but I verified all moore points of MICHELLE Hurley's assessment and plan with the following exceptions/additions: None Subjective Patient evaluated this morning. No BM at this time. Admits to passing "1 fart" this morning but nothing since. NGT in place. Patient states decreased abdominal pain and distention today. 1-2/10 in lower abdominal region today but admits he is mildly tender throughout. No further nausea. Per nursing, more flatus this afternoon but no BM. Patient confirms he believes he had a normal colonscopy in the past five years, and per his on telephone update "they told him not to come back." States he was doing more strenuous activity this weekend moving stones with a shed. Denies history of known hernias or repairs. Had previously been eating Leo[employer] baconator wednesday, allison kaylah breakfast biscuit with veggies on wednesday, salmon and rice on wednesday for lunch and n[place]ian chicken teryaki salmon with veggies for dinner wednesday night prior to this increased pain that prompted him to come to the emergency room. Discussed continuing conservative treatment at this time but that without prior abdominal surgeries, there is some increased concern for other etiologies. Denies fever, chills, chest pain, shortness of breath, recent weight loss/gain. 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 He also noted that someone mentioned a "pill you swallow that takes pictures" to help assist with dianosis if nothing is determined while he is inpatient. Review of Systems Review of Systems: All systems reviewed & are unremarkable except as noted in HPI & below Physical Exam Constitutional: well developed and well nourished; no acute distress ENMT: NGT with supervisor fruit grading brown output with darker brown/black sediment 230cc Neck: trachea midline, no thyromegaly Respiratory: normal respiratory effort, lungs clear to auscultation Cardiovascular: RRR, no murmur, no edema Gastrointestinal (Abdomen): Inspection/Auscultation: abdomen normal to inspection, + abdomen distended (mildly) and normal bowel sounds Percussion/Palpation: + abdomen tender (minimally tender lower abdomen) and abdomen soft; no guarding and abdomen not rigid Musculoskeletal: no cyanosis or clubbing, extremities motor strength 5/5 Skin: no rashes, warm and dry Neurologic: PERRL, EOMI, accommodation nl, no face palsy, no dysarthria Psychiatric: A+Ox3, euthymic affect Lymphatic: no cervical or axillary lymphadenopathy Results & Data Results & Data ([facility]) Vital Signs (Past 12 Hours) Vital Signs Pulse Resp BP Pulse Ox 12/12/19 06:57 58 L 16 137/73 92 Laboratory Results 12/12/19 12/11/19 Range/Units 06:42 22:25 Sodium 141 (136-145) mmol/L Potassium 3.4 L (3.5-5.1) mmol/L Chloride 103 (98-107) mmol/L Carbon Dioxide 32 (21-32) mmol/L Anion Gap 6.0 (3-11) BUN 12 (7-18) mg/dl Creatinine 1.11 (0.6-1.4) mg/dl Est Cr Clr Drug Dosing 53.9 ml/min Est GFR ( Amer) 71.8 Est GFR (Non-Af Amer) 61.9 BUN/Creatinine Ratio 10.5 (10-20) Glucose 108 H (70-99) mg/dl Calcium 9.5 (8.5-10.1) mg/dl Urine Color Yellow Urine Appearance Clear (Clear) Urine pH 7.0 (4.5-7.5) Ur Specific Dunn 1.031 H (1.000-1.030) Urine Protein Negative (Negative) Urine Glucose (UA) Negative (Negative) Urine Ketones Negative (Negative) Urine Blood Negative (Negative) Urine Nitrite Negative (Negative) Urine Bilirubin Negative (Negative) Urine Urobilinogen Negative (Negative) Ur Leukocyte Esterase Negative (Negative) Diagnostic Findings KUB IMPRESSION: 1. Mild increase in small bowel dilatation. This indicates a persistent small bowel obstruction. 2. No free air. 3. Nasogastric tube coiled within the stomach. Tip projects over the gastric fundus. PG Care Time/CCT Total # of Minutes Spent Total Time Spent with Patient: Total time spent is greater than 50% in coordination of care (as documented) at patient's floor/unit and/or counseling patient: Coding Level of Care Code 03305 Subseq Hosp Care Lvl 3 Diagnoses SBO (small bowel obstruction) K56.609 Hypertension I10 Gout M10.9 Glaucoma H40.9 BPH (benign prostatic hyperplasia) N40.0 DVT prophylaxis Z29.9
[2019-12-12] MEDS: LATANOPROST 0.005% OP SOLN 2.5 ML BTL OP SCH (16:38)
[2019-12-12] MEDS ORDERED: BETAMETHASONE VAL 0.1% CR 15 GM TOP PRN (17:02)
[2019-12-12] MEDS: TIMOLOL MALEATE 0.5% OP SOLN 5 ML BTL OP SCH (19:43)
[2019-12-12] MEDS: BRIMONIDINE TARTRATE 0.2% 5ML OP SCH (19:44)
[2019-12-12] MEDS: FLUTICASONE PROPIONATE NA SPR 16 GM BTL SCH (22:02)
[2019-12-13] MEDS: [UNRECOGNIZED DRUG - OTHER] SCH ×4 (00:03→23:54)
[2019-12-13] MEDS: NSS + 20MEQ KCL 20 MEQ/1,000 ML BAG IV SCH (01:43)
[2019-12-13 07:31] LABS: Hematocrit (blood only) 40.4 % (42-52); Mean Corpuscular Hemoglobin 32.3 pg (25-34); Mean Corpuscular Hgb Conc 34.7 g/dL (32-36); Mean Corpuscular Volume 93.3 fL (80-100); Platelet Count 148 K/uL (130-400); RDW Coefficient of Variation 13.5 % (11.5-14.5); Red Blood Count 4.33 M/uL (4.7-6.1); White Blood Count 7.14 K/uL (4.8-10.8)
[2019-12-13 07:55] LABS: BUN Creatinine Ratio 11.9 (10-20); Calcium 8.5 mg/dl (8.5-10.1); Est GFR (African American) 93.4; Est GFR (Non-African American) 80.6; Magnesium 1.8 mg/dl (1.8-2.4); Potassium 3.7 mmol/L (3.5-5.1)
--- NOTE | 2019-12-13 08:14 | XRay Report ---
KUB HISTORY: Small bowel obstruction. Follow-up. COMPARISON: Abdominal series 12/12/2019. FINDINGS: Nasogastric tube is curled within the stomach with the tip terminating in the gastric fundu s. Gas-filled dilated loops of small bowel within the left upper quadrant are not significant changed . These measure up to 4.2 cm in diameter. The majority of the colon is decompressed. No renal calcul i. No ureteral calculi. No pneumoperitoneum or pneumatosis. IMPRESSION: 1. No significant change in the small bowel obstruction. 2. Nasogastric tube terminates in the stomach with the tip at the gastric fundus. This remains unchan ged. ACT 112: Negative or not required by law. Electronically signed by: Ramón Mason M.D. 12/13/2019 8:13 AM
[2019-12-13] MEDS ORDERED: SODIUM CHLORIDE 0.65% NA SOLN 45 ML (OCEAN) PRN (08:50)
--- NOTE | 2019-12-13 09:09 | Surgery Progress Note ---
Date of Service December 13, 2019 Assessment & Plan (1) SBO (small bowel obstruction): improving NG output improved, will remove and start on clears seen with Dr. Mcnally Supervising Physician Co-Signing Physician Notes Patient seen and examined, labs and imaging reviewed, agree with above. Patient seen on rounds walking hallway, admits to passing flatus and bowel movement. He started to feel hungry, and the abdominal cramping is gone. On exam he is soft, nondistended, nontender. We will remove the NG tube and start him on clear liquids, advance diet as tolerated. Hopeful for discharge tomorrow if tolerates low fiber diet. Subjective +flatus and BM, no pain Physical Exam Gastrointestinal (Abdomen): Inspection/Auscultation: abdomen not distended Percussion/Palpation: abdomen soft; abdomen nontender NG 125 overnight Results & Data Vital Signs (Past 12 Hours) Vital Signs Temp Pulse Resp BP Pulse Ox 12/13/19 07:49 36.8 C 75 16 162/79 H 95 12/12/19 23:40 36.7 C 88 20 152/82 H 96 PG Care Time/CCT Total # of Minutes Spent Total Time Spent with Patient: Total time spent is greater than 50% in coordination of care (as documented) at patient's floor/unit and/or counseling patient: Coding Level of Care Code 64429 Inpt Consult Level 1 Diagnoses SBO (small bowel obstruction) K56.609
[2019-12-13] MEDS ORDERED: POTASSIUM CHLORIDE 40 MEQ in SODIUM CHLORIDE 0.9% 1000ML 1,000 ML IV SCH (09:30)
[2019-12-13] MEDS ORDERED: MAGNESIUM SULFATE / D5W 1 GM/100 ML BAG IV ONE (09:30)
[2019-12-13] MEDS: TIMOLOL MALEATE 0.5% OP SOLN 5 ML BTL OP SCH ×2 (09:43→15:56)
[2019-12-13] MEDS: BRIMONIDINE TARTRATE 0.2% 5ML OP SCH ×2 (09:43→15:56)
[2019-12-13] MEDS: HEPARIN SOD 5,000 UNIT/0.5 ML VIAL SQ SCH ×2 (10:48→20:13)
--- NOTE | 2019-12-13 12:16 | Hospitalist Progress Note ---
Date of Service December 13, 2019 Assessment & Plan (1) SBO (small bowel obstruction): * Patient with PMHx HTN, HLD, glaucoma, gout, BPH presented with SBO. No hx abdominal surgeries. Concerning for malignancy * Most recent colonoscopy September [address] May for personal history of colonic polyps which was normal with exception of non-bleeding internal hemorrhoids. No repeat recommended due to age/absence of advanced adenomas * Does have a history of right inguinal adenopathy and had seen Dr. Ibarra back in 2016 (also personal history of skin ca) which was non-palpable on exam and recommended updated sonogram of testicle which showed stable 7mm echogenic focus within left epididymal body, left hydrocele, 2 stable right sided- intratesticular cysts (stable from Apr 2015 imaging). Non palpable on exam today but may warrant further investigation given SBO without hx of abdominal surgeries. * Also history of multiple thyroid nodules 2015 which did not meet sonographic criteria for biopsy at that time. * Repeat KUB unchanged --> patient did have BM x 2 and resolution of abdominal pain * General surgery on consult -- appreciate assistance * NGT discontinued this morning per surgery * Conservative management for now -- Pain control prn tylenol, morphine Resume PO medications CLear liquid diet this morning --> advanced to low fiber/AHA Did order IV mag, increased potassium to IVF this morning as patient was still NPO Discontinue IVF as patient taking adequate PO at this time KUB vs small bowel follow through in the morning? -- will defer to surgery at this time (2) Hypertension: * Chronic. * Elevated currently at 162/79, however benazepril and hctz were on hold as patient was NPO --> resumed 12/12 * Continue to monitor (3) Gout: * Resumed home medications * No s/sx flare (4) Glaucoma: * Chronic. Continued home meds (5) BPH (benign prostatic hyperplasia): * Hx of -- had "green light laser" in past. PSA elevated at 5.230 August 2018 (6) DVT prophylaxis: * Heparin Dispo: possible discharge home tomorrow Admission and Anticipated Discharge Date Admission Date: December 11, 2019 Supervising Physician Co-Signing Physician Notes PA Supervision Note: I did not personally see or examine the patient today, but I verified all moore points of MICHELLE Hurley's assessment and plan with the following exceptions/additions: None Subjective Patient evaluated this morning. Feeling much better. Abdominal pain zero per patient, but he describes it as being minimally "tender" but now instead of being central/epigastric, it is moreso diffuse and localized to left abdomen. Denies any further nausea or vomiting. States he had a bowel movement last night and again this morning, both fairly formed and normal in color/consistency. Had NGT removed this morning. Patient states he did have some nasal and throat irritation that has been improved since administration of nasal saline spray and broth from soup earlier this morning. Tolerated clear liquid diet this morning for breakfast and is excited about advancing his diet this afternoon. Denies any fevers, chills, chest pain, shortness of breath, cough, n/v/d, dysuria at this time. Hopeful for discharge tomorrow. Review of Systems Review of Systems: All systems reviewed & are unremarkable except as noted in HPI & below Physical Exam Constitutional: well developed and well nourished; no acute distress Eyes: + anicteric sclerae and PERRL Neck: trachea midline multiple small thyroid nodules bilaterally Respiratory: normal respiratory effort, lungs clear to auscultation Cardiovascular: RRR, no murmur, no edema Gastrointestinal (Abdomen): Inspection/Auscultation: abdomen normal to inspection and normal bowel sounds; abdomen not distended Percussion/Palpation: abdomen soft; abdomen nontender, no guarding and abdomen not rigid Musculoskeletal: no cyanosis or clubbing, extremities motor strength 5/5 Skin: no rashes, warm and dry Neurologic: PERRL, EOMI, accommodation nl, no face palsy, no dysarthria Psychiatric: A+Ox3, euthymic affect Lymphatic: no cervical or axillary lymphadenopathy Results & Data Results & Data ([facility]) Vital Signs (Past 12 Hours) Vital Signs Temp Pulse Resp BP Pulse Ox 12/13/19 07:49 36.8 C 75 16 162/79 H 95 Laboratory Results 12/13/19 12/13/19 12/12/19 Range/Units 07:15 07:15 13:25 WBC 7.14 (4.8-10.8) K/uL RBC 4.33 L (4.7-6.1) M/uL Hgb 14.0 (14.0-18.0) g/dL Hct 40.4 L (42-52) % MCV 93.3 (80-100) fL MCH 32.3 (25-34) pg MCHC 34.7 (32-36) g/dL RDW Std Deviation 46.0 (36.4-46.3) fL RDW Coeff of Giovanni 13.5 (11.5-14.5) % Plt Count 148 (130-400) K/uL MPV 11.0 H (7.4-10.4) fL Sodium 142 (136-145) mmol/L Potassium 3.7 (3.5-5.1) mmol/L Chloride 108 H (98-107) mmol/L Carbon Dioxide 27 (21-32) mmol/L Anion Gap 6.0 (3-11) BUN 10 (7-18) mg/dl Creatinine 0.88 (0.6-1.4) mg/dl Est Cr Clr Drug Dosing 68.0 ml/min Est GFR ( Amer) 93.4 Est GFR (Non-Af Amer) 80.6 BUN/Creatinine Ratio 11.9 (10-20) Glucose 82 (70-99) mg/dl Calcium 8.5 (8.5-10.1) mg/dl Magnesium 1.8 1.8 (1.8-2.4) mg/dl Diagnostic Findings KUB IMPRESSION: 1. No significant change in the small bowel obstruction. 2. Nasogastric tube terminates in the stomach with the tip at the gastric fundus. This remains unchanged. PG Care Time/CCT Total # of Minutes Spent Total Time Spent with Patient: Total time spent is greater than 50% in coordination of care (as documented) at patient's floor/unit and/or counseling patient: Coding Level of Care Code 75757 Subseq Hosp Care Lvl 3 Diagnoses SBO (small bowel obstruction) K56.609 Hypertension I10 Gout M10.9 Glaucoma H40.9 BPH (benign prostatic hyperplasia) N40.0 DVT prophylaxis Z29.9
[2019-12-13] MEDS ORDERED: COLCHICINE 0.6 MG TAB PO PRN (13:02)
[2019-12-13] MEDS: LATANOPROST 0.005% OP SOLN 2.5 ML BTL OP SCH (15:56)
[2019-12-13] MEDS: FLUTICASONE PROPIONATE NA SPR 16 GM BTL SCH (20:13)
[2019-12-13] MEDS ORDERED: ASPIRIN 81 MG ECTAB PO SCH (21:00)
[2019-12-13] MEDS ORDERED: ENALAPRIL MALEATE 10 MG TAB PO SCH (21:00)
[2019-12-13] MEDS ORDERED: NON-FORMULARY MEDICATION (Glucos Sul 2kcl-Msm-Chond-C-Mn [Glucosamine Chondroitin] 1 CAP) PO SCH (21:00)
[2019-12-14 06:50] LABS: Hematocrit (blood only) 41.4 % (42-52); Hemoglobin 14.4 g/dL (14.0-18.0); Mean Corpuscular Hemoglobin 32.4 pg (25-34); Mean Corpuscular Hgb Conc 34.8 g/dL (32-36); Mean Platelet Volume 11.2 fL (7.4-10.4); Platelet Count 185 K/uL (130-400); RDW Coefficient of Variation 13.6 % (11.5-14.5); RDW Standard Deviation 46.4 fL (36.4-46.3); Red Blood Count 4.45 M/uL (4.7-6.1); White Blood Count 5.84 K/uL (4.8-10.8)
[2019-12-14 07:24] LABS: BUN Creatinine Ratio 12.8 (10-20); Calcium 8.3 mg/dl (8.5-10.1); Creatinine Clr Calc Pharmacy 53.9 ml/min; Est GFR (African American) 71.8; Est GFR (Non-African American) 61.9; Magnesium 2.2 mg/dl (1.8-2.4); Phosphorus 2.4 mg/dl (2.5-4.9); Potassium 3.6 mmol/L (3.5-5.1)
[2019-12-14] MEDS: [UNRECOGNIZED DRUG - OTHER] SCH (07:26)
[2019-12-14] MEDS: BRIMONIDINE TARTRATE 0.2% 5ML OP SCH (07:27)
[2019-12-14] MEDS: TIMOLOL MALEATE 0.5% OP SOLN 5 ML BTL OP SCH (07:28)
[2019-12-14] MEDS: HEPARIN SOD 5,000 UNIT/0.5 ML VIAL SQ SCH (07:32)
[2019-12-14] MEDS ORDERED: allopurinoL 100 MG TAB PO SCH (09:00)
[2019-12-14] MEDS ORDERED: CYANOCOBALAMIN (VITAMIN B-12) 2,500 MCG TAB.SUBL SL SCH (09:00)
[2019-12-14] MEDS ORDERED: hydroCHLOROthiazide 25 MG TAB PO SCH (09:00)
[2019-12-14] MEDS ORDERED: OMEGA-3 (PURIFIED FISH OIL) 1 GM CAP PO SCH (09:00)
[2019-12-14] MEDS ORDERED: NON-FORMULARY MEDICATION (Coenzyme Q10 [Co Q-10] 100 MG) PO SCH (09:00)
[2019-12-14] MEDS ORDERED: CHOLECALCIFEROL 1,000 UNITS 25 MCG TAB PO SCH (09:00)
[2019-12-14] MEDS ORDERED: POT PHOSPHATE MONOBASIC W/ SOD TAB PO SCH (09:00)
--- NOTE | 2019-12-14 10:01 | Surgery Progress Note ---
Date of Service December 14, 2019 Assessment & Plan (1) SBO (small bowel obstruction): resolved etiology uncertain follow-up in clinic as needed Supervising Physician Co-Signing Physician Notes Patient seen and examined, agree with above. Admitted with possible de bhumi small bowel obstruction. Multiple bowel movements yesterday, tolerating low residual diet. On exam he is afebrile with stable vitals. Abdomen soft, nondistended, nontender. Recommend discharged home, follow-up with PCP to coordinate outpatient CT scan with oral and IV contrast versus capsule endoscopy. Surgery will sign off, call with questions or concerns Subjective had two regular meals, multiple BM yesterday Physical Exam Gastrointestinal (Abdomen): Inspection/Auscultation: abdomen not distended Percussion/Palpation: abdomen soft; abdomen nontender Results & Data Vital Signs (Past 12 Hours) Vital Signs Temp Pulse Resp BP Pulse Ox 12/14/19 07:28 36.6 C 62 18 133/77 92 12/14/19 00:32 37.1 C 61 18 107/53 L 94 PG Care Time/CCT Total # of Minutes Spent Total Time Spent with Patient: Total time spent is greater than 50% in coordination of care (as documented) at patient's floor/unit and/or counseling patient: Coding Level of Care Code 45628 Inpt Consult Level 1 Diagnoses SBO (small bowel obstruction) K56.609
--- NOTE | 2019-12-14 10:28 | Discharge Summary ---
Date of Service December 14, 2019 Admission HPI Per Admitting Provider 79-Ms with 2 days of abdominal pain. The patient states the pain started am of 12/09 but was mild . He did notice some improvement with some Tums and Pepto- Bismol. Patient states that early this morning, he awoke with more severe abdominal pain. The pain is in the epigastric area and does radiate at times to the back. The pain is a burning, sharp discomfort. It is in the epigastric area primarily. It is a 7/10. Sometimes, movement makes it worse. The patient did try some Tylenol with minimal relief. The patient has had some nausea, no vomiting. No diarrhea, no urinary complaints. No fever, chills, cough or congestion. No shortness of breath. The patient has no previous surgical history. The pt did exert himself with heavy lifting and his symptoms began after this, question internal hernia? Admission Exam Per Admitting Provider The patient appeared well nourished and normally developed. Vital signs as documented. Head exam is normocephalic atraumatic no scleral icterus Neck is without JVD, thyromegaly, or carotid bruits. Lungs are clear to auscultation, no focal loss of breath sounds Cardiac exam, Rhythm is regular.. No murmurs, rubs or gallops. Abdominal exam reveals hypoactive bowel sounds, soft mild tenderness, no masses, not tympanitic Extremities are nonedematous and both pedal pulses are normal. Neurologic exam is alert and oriented, no focal loss of strength or sensation Skin is without bruises or rashes Psychologically is without concerns for anxiety or depression Principal Diagnosis Small Bowel Obstruction Discharge Exam Constitutional well developed and well nourished; no acute distress Eyes + anicteric sclerae and PERRL ENMT mmm Neck trachea midline Respiratory normal respiratory effort, lungs clear to auscultation Cardiovascular RRR, no murmur, no edema Gastrointestinal (Abdomen) Inspection/Auscultation: abdomen normal to inspection and normal bowel sounds; abdomen not distended Percussion/Palpation: abdomen soft; abdomen nontender, no guarding and abdomen not rigid Musculoskeletal no cyanosis or clubbing, extremities motor strength 5/5 Skin no rashes, warm and dry Neurologic PERRL, EOMI, accommodation nl, no face palsy, no dysarthria Psychiatric A+Ox3, euthymic affect Lymphatic no cervical or axillary lymphadenopathy Discharge Data Allergies Allergy/AdvReac Type Severity Reaction Status Date / Time Cipro Allergy Unknown TEAR IN RT Verified 09/15/17 12:17 CALF MUSCLE ciprofloxacin AdvReac Unknown TEAR IN RT Verified 12/11/19 19:19 CALF MUSCLE clindamycin AdvReac Unknown C-Diff Verified 12/11/19 19:19 Tkddogk-Xbh-Auw Reductase AdvReac Unknown Verified 12/11/19 19:19 Inhibitor Consultations 12/11/19 15:54 ED Decision to Admit Stat 12/11/19 19:18 Consult General Surgery Routine Ordered Studies 12/11/19 13:24 CT abd pelvis IV con only Stat KUB 12/11 Abd XRAY 12/12 KUB Hospital Course (1) SBO (small bowel obstruction): * Patient with PMHx HTN, HLD, glaucoma, gout, BPH presented with SBO. No hx abdominal surgeries. * Most recent colonoscopy September [address] May for personal history of colonic polyps which was normal with exception of non-bleeding internal hemor rhoids. No repeat recommended due to age/absence of advanced adenomas * Does have a history of right inguinal adenopathy and had seen Dr. Ibarra back in 2015 (also personal history of skin ca) which was non-palpable on exam and recommended updated sonogram of testicle which showed stable 7mm echogenic focus within left epididymal body, left hydrocele, 2 stable right sided- intratesticular cysts (stable from Apr 2015 imaging). Non palpable on exam today but may warrant further investigation given SBO without hx of abdominal surgeries. * Also history of multiple thyroid nodules 2015 which did not meet sonographic criteria for biopsy at that time. * General surgery consulted * Conservative treatment while inpatient with IVF, antiemetics and pain control as needed. NGT initially * Patient with multiple bowel movements and resolutions of pain, NGT discontinued * Resolution clinically although bowel with some dilated loops --> recommended outpatient follow up for a possible repeat colonoscopy vs CT abdomen/pelvis or smart pill * Educated on low fiber diet for next two weeks. [facility] (2) Hypertension: * Chronic. Stable, BP 136/75 * Continued home benazepril, hctz at discharge (3) Gout: * Continued home medications (4) Glaucoma: * Chronic. Continued home meds (5) BPH (benign prostatic hyperplasia): * Hx of -- had "green light laser" in past. PSA elevated at 5.230 August 2018 (6) DVT prophylaxis: * Heparin while inpatient Discharged home with . Total Time Total Time Spent Total Time Spent (In Minutes): 60 Discharge Plan Discharge Items Patient Disposition: Home - Self-Care Reason For Visit: SMALL BOWEL OBSTRUCTION Discharge Diagnosis: Small Bowel Obstruction Condition on Discharge: Good Goals: You have been hospitalized for an acute medical problem. During your stay at [facility], we have made an effort to correct the problem that brought you to the hospital while keeping you as comfortable as possible. Medications were used to bring your condition under control and your discharge instructions will include directions for any medications you should take after leaving the hospital. Please make sure you see your Primary Care Provider as part of your follow up plan. Activity: Resume your previous activity Activity Comment: increase as tolerated Non-emergency contact: Primary Care Provider Call non-emergency contact if: you have any medication questions, your symptoms worsen, your pain is worsening and you have a fever Follow-up/Referrals: Carlos Marquez MD [Primary Care Provider] - Jamar Mcnally DO, FACS [Physician] - (Call the office if you have any questions or concerns) Diet: Heart Healthy and Low Fiber Addtl Attending Provider Instructions: You have been hospitalized for a small bowel obstruction. You were managed conservatively with an tube to decompress your stomach and given IV fluids and electrolyte replacement. Your bowel obstruction resolved by itself, but given no prior history of abdominal surgeries, it is recommended that you follow up with your primary care provider to see about possibly repeating a colonoscopy, a CT scan of the abdomen and pelvis with contrast, or arranging for something like the smart pill that we discussed which takes pictures and could provide additional insight into the areas of your small bowel that aren't always seen on colonoscopy given how far this camera goes through your bowels. You should continue a low fiber diet for at least the next two weeks. Information will be provided to you as far as dietary choices. You may continue to use a stool softener over the counter to keep your bowels regular, as discussed, and may consider miralax or colace as previously taken. Please follow up with general surgery clinic as needed. Please follow up with your primary care provider in the next week. Please return to the emergency department for any worsening abdominal pain, nausea, vomiting or for any other symptoms that are concerning for you. It has been a pleasure being a part of the medical team providing for you while you have been in the hospital. Take care! Pending Studies at Discharge: No Stand-Alone Forms: My [facility], Smoking Cessation Medications and DC Order Prescriptions: Continued brimonidine-timolol 0.2-0.5 % drops 1 drops ophthalmic (eye) BID RF: 0 latanoprost 0.005 % drops 1 drops OP QDD RF: 0 ciclopirox 0.77 % gel 1 appln TOP QAM RF: 0 aspirin 81 mg tablet,delayed release (DR/EC) 81 mg PO HS RF: 0 coenzyme Q10 [Co Q-10] 100 mg capsule 100 mg PO QAM RF: 0 colchicine 0.6 mg tablet 0.6 mg PO DAILY PRN (Reason: gout) Qty: 90 RF: 0 betamethasone valerate 0.1 % cream See Rx Instructions TOP BID PRN (Reason: itching) Qty: 45 RF: 3 acetaminophen [Tylenol] 325 mg Tablet 325 mg PO QID PRN (Reason: Pain) RF: 0 cyanocobalamin (vitamin B-12) [Vitamin B-12] 1,000 mcg Tablet 3,000 mcg PO QAM RF: 0 [place]-3 350 mg-235 mg- 90 mg-597 mg Capsule,Delayed Release(Dr/Ec) 1 cap PO QAM RF: 0 Glucosamine Chondroitin 550-30-1 mg Capsule 1 cap PO BID RF: 0 allopurinol 100 mg tablet 100 mg PO QAM RF: 0 meloxicam 7.5 mg tablet 7.5 mg PO QDL RF: 0 hydrochlorothiazide 25 mg tablet 12.5 mg PO QAM RF: 0 benazepril 40 mg tablet 40 mg PO HS RF: 0 cholecalciferol (vitamin D3) 1,000 unit capsule 1,000 units PO QAM RF: 0 Discharge Orders: Discharge Order (Routine); Ordered 12/14/19 Ordered By: Desiree Johns Admission Data Admit Date/Time: 12/11/19 17:28 Attending Provider: Desiree Johns Admit Provider: Ruddy Beckham Primary Care Provider: Carlos Marquez Other Providers: Ruddy Beckham ; Chambers,Jamar M. Other Interventions: Discharge Summary Assessment (RN) Last Done: 12/14/19 11:54 DC Date/Time DO NOT enter until pt leaves facility: 12/14/19 12:55 Supervising Physician Co-Signing Physician Notes PA Supervision Note: I personally saw and examined the patient. I verified all moore points and agree with MICHELLE Hurley with the following exceptions and/or additions: Much improved, multiple bowel movements, passing flatus, no abdominal pain unless touched. Denies chest pain or shortness of breath Discussed case with general surgery at the bedside. Vitals reviewed Gen: AAOx3, NAD HEENT: Anicteric sclerae, EOMI CV: RRR no mgr nl S1S2 Pulm: CTAB no wcr Abd: +BS soft mild tenderness palpation in the mid abdomen without guarding or rebound ND no masses or hernias Ext: No edema Skin: No rashes, warm/dry Neuro: Full strength throughout 79-year-old male here with small bowel obstruction with no history of abdominal surgeries -Stable for discharge to home after decompression and IV fluid hydration -Recommend CT of the abdomen pelvis with oral and IV contrast versus video capsule endoscopy as an outpatient -Follow-up with surgery as needed as an outpatient Stable for discharge home Coding Level of Care Code D/C Day Management >30 mins Diagnoses SBO (small bowel obstruction) K56.609 Hypertension I10 Gout M10.9 Glaucoma H40.9 BPH (benign prostatic hyperplasia) N40.0 DVT prophylaxis Z29.9
[2019-12-14] MEDS ORDERED: MELOXICAM 7.5 MG TAB PO SCH (11:30)
== END 2019-12-14 12:55 | disposition home or self-care (01) | DRG 390 ==
LOC: ED 11:49 → SUATTDRO 17:28 → 3W 17:28